=== PATIENT | female | born 1955 | race Caucasian/White ===

== ENCOUNTER 2017-10-25 08:41 | Outpatient (CLI) | payer OTHER | END 2017-10-25 08:52 | disposition home or self-care (01) | LOC: SONOGRAMA 08:41 → MAMO-SONO 09:15 | DX: N84.0 Polyp of corpus uteri (principal); N60.12 Diffuse cystic mastopathy of left breast; N60.11 Diffuse cystic mastopathy of right breast; M89.9 Disorder of bone, unspecified; N80.1 Endometriosis of ovary; N95.2 Postmenopausal atrophic vaginitis ==